=== PATIENT | male | born 1970 | race Caucasian/White ===

== ENCOUNTER 2021-02-11 05:54 | Observation (INO) ==
[2021-02-11 07:09] LABS: Basophils % 0.4 %; Eosinophils # 0.2 K/mcL (0.0-0.6); Eosinophils % 2.6 %; Hematocrit 51.6 % (37.5-50.1); Hemoglobin 18.1 g/dL (12.9-16.9); Immature Granulocytes % 0.3 % (0-4); Lymphocytes # 2.8 K/mcL (0.6-4.6); Lymphocytes % 30.9 %; Mean Corpuscular HGB Conc 35.1 g/dL (31.6-35.5); Mean Corpuscular Hemoglobin 30.8 pg (28.0-33.3); Mean Corpuscular Volume 87.8 fL (83.0-100.0); Mean Platelet Volume 11.1 fL (9.4-12.4); Monocytes # 0.7 K/mcL (0.0-1.3); Monocytes % 7.5 %; Neutrophils # 5.2 K/mcL (1.6-8.9); Platelet Count 209 K/mcL (140-400); Red Blood Count 5.88 M/mcL (4.19-5.50); Red Cell Distribution Width 12.9 % (11.5-14.5); Segmented Neutrophils % 58.3 %
[2021-02-11 07:30] LABS: BUN/Creatinine Ratio 18 (6-26); Blood Urea Nitrogen 21 mg/dL (6-20); Calcium 9.8 mg/dL (8.6-10.3); Carbon Dioxide 27 mEq/L (23-29); Chloride 104 mEq/L (98-107); Glucose 89 mg/dL (70-105); Magnesium 2.2 mg/dL (1.6-2.6); Osmolality,Calculated 290 (280-300); Phosphorous 3.1 mg/dL (2.7-4.5); Potassium 3.2 mEq/L (3.5-5.1); Sodium 139 mEq/L (136-145); eGFR For African Americans > 60 (> 60); eGFR For Non-African Americans > 60 (> 60)
[2021-02-11 07:31] LABS: Troponin I < 0.03 ng/mL (< 0.04)
[2021-02-11] MEDS ORDERED: Perflutren Lipid Microsphere 1.3 ML in 0.9 % Sodium Chloride 8.7 ML IVP PRN (07:51)
[2021-02-11] MEDS ORDERED: Acetaminophen 325 MG TABLET PO PRN (08:13)
[2021-02-11] MEDS ORDERED: Ondansetron 4 MG/2 ML VIAL IVP PRN (08:13)
[2021-02-11] MEDS ORDERED: Melatonin 3 MG TABLET PO PRN (08:13)
[2021-02-11] MEDS: Metoprolol XL (24 HR) Succ 25 MG TAB.ER.24H PO SCH (15:29)
[2021-02-11] MEDS: Aspirin 81 MG TAB.CHEW PO SCH (15:29)
[2021-02-11 16:21] LABS: Chol/HDL Ratio 3.4 (0-4.9)
[2021-02-11 16:34] LABS: Thyroid Stimulating Hormone 1.508 mcIU/mL (0.340-5.600)
[2021-02-12 06:16] LABS: Hematocrit 53.5 % (37.5-50.1); Hemoglobin 18.6 g/dL (12.9-16.9); Mean Corpuscular HGB Conc 34.8 g/dL (31.6-35.5); Mean Corpuscular Hemoglobin 30.8 pg (28.0-33.3); Mean Corpuscular Volume 88.7 fL (83.0-100.0); Mean Platelet Volume 10.9 fL (9.4-12.4); Platelet Count 228 K/mcL (140-400); Red Blood Count 6.03 M/mcL (4.19-5.50); Red Cell Distribution Width 12.9 % (11.5-14.5); White Blood Count 9.8 K/mcL (4.3-11.1)
[2021-02-12 06:42] LABS: BUN/Creatinine Ratio 18 (6-26); Blood Urea Nitrogen 21 mg/dL (6-20); Carbon Dioxide 26 mEq/L (23-29); Chloride 103 mEq/L (98-107); Glucose 95 mg/dL (70-105); Osmolality,Calculated 287 (280-300); Potassium 3.8 mEq/L (3.5-5.1); Sodium 137 mEq/L (136-145); eGFR For African Americans > 60 (> 60); eGFR For Non-African Americans > 60 (> 60)
[2021-02-12] MEDS: Aspirin 81 MG TAB.CHEW PO SCH (09:53)
[2021-02-12] MEDS: Metoprolol XL (24 HR) Succ 25 MG TAB.ER.24H PO SCH (09:53)
[2021-02-12] MEDS ORDERED: 0.9 % Sodium Chloride 1,000 ML ONE ×2 (13:46→14:08)
[2021-02-12] MEDS ORDERED: ISOVUE-370 200 ML INFUS..BTL ONE (13:46)
[2021-02-12] MEDS ORDERED: Heparin 1,000 UNITS/500 mL 500 ML ONE (13:46)
[2021-02-12] MEDS ORDERED: Nitroglycerin 1,000 MCG/5 ML VIAL IV ONE (13:46)
[2021-02-12] MEDS ORDERED: *HR* Heparin 10,000 UNIT/10 ML VIAL ONE (13:46)
[2021-02-12] MEDS ORDERED: *HR* HYDROcodone/Acet 5/325 mg TABLET PO PRN (14:05)
[2021-02-12] MEDS ORDERED: Dextrose Gel 15 GM/37.5 ML TUBE PO PRN ×2 (14:06)
[2021-02-12] MEDS ORDERED: D5% in Water 1,000 ML IVC PRN (14:06)
[2021-02-12] MEDS ORDERED: *HR* Dextrose 50 % in Water (Vial) 50 ML VIAL IVP PRN (14:06)
[2021-02-12] MEDS ORDERED: *HR* FentaNYL (PF) 100 MCG/2 ML VIAL ONE (14:08)
[2021-02-12] MEDS ORDERED: *HR* Midazolam HCl 2 MG/2 ML VIAL ONE (14:08)
[2021-02-12] MEDS ORDERED: Insulin LISPRO 300 UNITS/3 ML VIAL SUBQ SCH (16:30)
[2021-02-12] MEDS: *HR* Heparin 5,000 UNIT/ML VIAL SQ SCH ×2 (17:04→17:12)
[2021-02-12 18:30] VITALS: BP 116/79
[2021-02-13] MEDS ORDERED: lisinopriL 5 MG TABLET PO SCH (09:00)
[2021-02-13] MEDS ORDERED: Metoprolol XL (24 HR) Succ 50 MG TAB.ER.24H PO SCH (09:00)
== END 2021-02-12 18:30 | disposition home or self-care (01) ==
LOC: EMEROOARM 05:54 → CDU 05:54 → SUATTDRO 08:19 → CDU 09:43 → 3BNU 14:06
PROVIDERS: ADMIT Internal Medicine; ATTEND Internal Medicine